=== PATIENT | female | born 2000 | race Caucasian/White ===

== ENCOUNTER 2021-12-10 17:00 | Outpatient (CLI) ==
[~2021-12-10] VITALS: Ht 160 cm; Wt 90.9 kg
[2021-12-10 17:19] VITALS: BP 144/94
[2021-12-10] MEDS ORDERED: PRENTAB9 PO (17:29)
[2021-12-10] MEDS ORDERED: ZYRTTAB8 PO (17:29)
[2021-12-10] MEDS ORDERED: BENA25CA4 PO (17:29)
[2021-12-10 17:39] VITALS: BP 130/76
[2021-12-10 17:55] LABS: HEMATOCRIT 32.8 % (36.0-47.0); HEMOGLOBIN 10.4 g/dl (12.0-15.5); MEAN CORPUSCULAR HGB CONC 31.7 g/dl (32.0-36.5); MEAN CORPUSCULAR VOLUME 78.8 fl (80.0-96.0); PLATELET COUNT, AUTOMATED 358 10^3/uL (150-450); RED BLOOD COUNT 4.16 10^6/uL (4.00-5.40)
[2021-12-10 18:15] LABS: ALBUMIN 2.7 GM/DL (3.2-5.2); ALT/SGPT 17 U/L (12-78); BILIRUBIN,TOTAL 0.6 MG/DL (0.2-1.0); BLOOD UREA NITROGEN 9 MG/DL (7-18); CALCIUM LEVEL 8.8 MG/DL (8.5-10.1); CARBON DIOXIDE LEVEL 23 MEQ/L (21-32); CHLORIDE LEVEL 107 MEQ/L (98-107); CREATININE FOR GFR 0.54 MG/DL (0.55-1.30); GLUCOSE, FASTING 91 MG/DL (70-100); POTASSIUM SERUM 4.1 MEQ/L (3.5-5.1); SODIUM LEVEL 137 MEQ/L (136-145); TOTAL PROTEIN 6.9 GM/DL (6.4-8.2)
[2021-12-10 19:26] VITALS: BP 145/84
== END 2021-12-10 20:00 | disposition home or self-care (01) ==
LOC: M LDO 17:00
PROVIDERS: ATTEND Obstetrics & Gynecology
DX: O99.713 Diseases of the skin and subcutaneous tissue complicating pregnancy, third trimester (principal); L29.9 Pruritus, unspecified; Z3A.37 37 weeks gestation of pregnancy
CPT/HCPCS: 36415; 59025; 80053; 82239; 85027; G0463

== ENCOUNTER 2021-12-23 23:43 | Outpatient (CLI) | payer OTHER ==
[~2021-12-23] VITALS: Ht 160 cm; Wt 92.9 kg
[~2021-12-23 23:43] MED LIST: BENA25CA4 PO; PRENTAB9 PO; ZYRTTAB8 PO
[2021-12-24] MEDS ORDERED: PEPC10TA6 PO (00:07)
[2021-12-24] MEDS ORDERED: HOME MED LIST COMPLETE! XX SCH (00:10)
[2021-12-24 00:11] VITALS: BP 135/79
== END 2021-12-24 00:34 | disposition home or self-care (01) ==
LOC: M LDO 23:43
PROVIDERS: ATTEND Obstetrics & Gynecology
DX: O26.893 Other specified pregnancy related conditions, third trimester (principal); R03.0 Elevated blood-pressure reading, without diagnosis of hypertension; Z3A.39 39 weeks gestation of pregnancy
CPT/HCPCS: 59025; 76815; G0463

== ENCOUNTER 2021-12-24 15:24 | Inpatient (IN) | payer OTHER ==
[2021-12-24] VITALS (16 sets, daily range): BP systolic 126–177; BP diastolic 67–117
[~2021-12-24] VITALS: Ht 160 cm; Wt 92.4 kg
[~2021-12-24 15:24] MED LIST changes: +PEPC10TA6 PO
[2021-12-24] MEDS ORDERED: HOME MED LIST COMPLETE! XX SCH (15:40)
[2021-12-24] MEDS ORDERED: LIDOCAINE 1% MDV 20ML VIAL INFIL PRN (16:40)
[2021-12-24] MEDS ORDERED: TRANEXAMIC ACID INJection 1,000 MG in NS 100 ML IV PRN (16:40)
[2021-12-24] MEDS ORDERED: OXYTOCIN DRIP 30 UNITS in IV 1 EA IV PRN (16:40)
[2021-12-24 16:41] LABS: HEMATOCRIT 32.7 % (36.0-47.0); HEMOGLOBIN 10.7 g/dl (12.0-15.5); MEAN CORPUSCULAR HEMOGLOBIN 25.3 pg (27.0-33.0); MEAN CORPUSCULAR HGB CONC 32.7 g/dl (32.0-36.5); MEAN CORPUSCULAR VOLUME 77.3 fl (80.0-96.0); PLATELET COUNT, AUTOMATED 380 10^3/uL (150-450); RED BLOOD COUNT 4.23 10^6/uL (4.00-5.40); WHITE BLOOD COUNT 10.4 10^3/uL (4.0-10.0)
[2021-12-24 16:59] LABS: ALT/SGPT 14 U/L (12-78); BILIRUBIN,TOTAL 0.5 MG/DL (0.2-1.0); CREATININE FOR GFR 0.46 MG/DL (0.55-1.30); LDH LACTATE DEHYDROGENASE 191 U/L (84-246); URIC ACID 4.9 MG/DL (2.6-6.0)
[2021-12-24 17:50] LABS: CREATININE,RANDOM URINE 85.2 MG/DL; TOTAL PROTEIN,RANDOM URINE 25.4 MG/DL (0.0-12.0)
[2021-12-24] MEDS ORDERED: miSOPROStol 50MCG 1/2 TABLET PO ONE (19:20)
[2021-12-25] VITALS (23 sets, daily range): BP systolic 108–177; BP diastolic 58–113
[2021-12-25] MEDS: miSOPROStol 50MCG 1/2 TABLET PO SCH ×2 (01:49→06:22)
[2021-12-25] MEDS ORDERED: miSOPROStol 25MCG 1/4 TABLET PO SCH (10:40)
[2021-12-25] MEDS ORDERED: OXYTOCIN DRIP 30 UNITS in IV 1 EA IV SCH (17:05)
[2021-12-25 19:23] LABS: HEMATOCRIT 34.5 % (36.0-47.0); HEMOGLOBIN 11.2 g/dl (12.0-15.5); MEAN CORPUSCULAR HEMOGLOBIN 25.2 pg (27.0-33.0); MEAN CORPUSCULAR HGB CONC 32.5 g/dl (32.0-36.5); MEAN CORPUSCULAR VOLUME 77.5 fl (80.0-96.0); PLATELET COUNT, AUTOMATED 370 10^3/uL (150-450); RED BLOOD COUNT 4.45 10^6/uL (4.00-5.40); WHITE BLOOD COUNT 11.9 10^3/uL (4.0-10.0)
[2021-12-25] MEDS ORDERED: FENTANYL 2MCG/ML ROPIVACAINE 0.2% IN 0.9% NACL 100ML IVBAG As Ordered ONE (23:36)
[2021-12-25] MEDS ORDERED: LACTATED RINGER'S 1000 ML IV PRN (23:37)
[2021-12-25] MEDS ORDERED: NALOXONE INJ 0.4MG/1ML VIAL (J2310 PER 1MG) IV PRN (23:37)
[2021-12-25] MEDS ORDERED: EPIDURAL/PCA KEYS XX PRN (23:37)
[2021-12-25] MEDS ORDERED: ONDANSETRON 4MG/2ML VIAL IV PRN (23:37)
[2021-12-25] MEDS ORDERED: EPIDURAL COMMENT XX SCH (23:37)
[2021-12-25] MEDS ORDERED: REFRIGERATOR IV KEYS XX PRN (23:37)
[2021-12-25] MEDS ORDERED: diphenhydrAMINE 50MG/ML VIAL (J1200) IV PRN (23:37)
[2021-12-25] MEDS ORDERED: ePHEDrine SULFATE 25 MG/5 ML(5MG/ML) SYRINGE IV PRN (23:37)
[2021-12-25] MEDS: LR 1,000 ML IV SCH (23:44)
[2021-12-26] VITALS (54 sets, daily range): BP systolic 115–172; BP diastolic 55–98
[2021-12-26] MEDS: FENTANYL/ROPIVACAINE/NACL BAG 100 ML EPIDURAL SCH ×2 (00:27→08:10)
[2021-12-26] MEDS: LR 1,000 ML IV SCH ×3 (04:15→10:47)
[2021-12-26] MEDS ORDERED: diphenhydrAMINE 50MG/ML VIAL (J1200) IV ONE (09:45)
[2021-12-26] MEDS ORDERED: ONDANSETRON 4MG/2ML VIAL IV PRN (13:25)
[2021-12-26] MEDS ORDERED: DIBUCAINE 1% OINTMENT 30GM TOP PRN (13:25)
[2021-12-26] MEDS ORDERED: IBUPROFEN 600MG TAB PO PRN (13:25)
[2021-12-26] MEDS ORDERED: OXYTOCIN DRIP 30 UNITS in IV 1 EA IV SCH (13:25)
[2021-12-26] MEDS ORDERED: ACETAMINOPHEN TAB 650MG DOSE (2X325MG) PO PRN (13:25)
[2021-12-26] MEDS ORDERED: MEASLES,MUMPS,RUBELLA VACCINE INJ (MMR-II) (90707) SC SCH (13:25)
[2021-12-26] MEDS ORDERED: RHOGAM 300 MCG (1500 IU) INJ (J2790) IM SCH (13:25)
[2021-12-26] MEDS: ACETAMINOPHEN 500 MG TAB PO PRN (14:14)
[2021-12-26] MEDS: IBUPROFEN 800 MG TAB PO PRN (14:15)
[2021-12-27] MEDS: DOCUSATE SODIUM 100MG CAPSULE PO PRN ×2 (01:18→21:18)
[2021-12-27] MEDS: ACETAMINOPHEN 500 MG TAB PO PRN ×2 (01:18→10:46)
[2021-12-27] MEDS: IBUPROFEN 800 MG TAB PO PRN ×2 (03:55→16:40)
[2021-12-27 06:13] VITALS: BP 135/73
[2021-12-27] MEDS: PRENATAL VITAMINS CHEWABLE TABLET PO SCH (08:11)
[2021-12-27 18:00] VITALS: BP 121/67
[2021-12-28] VITALS (41 sets, daily range): BP systolic 108–170; BP diastolic 51–98
[2021-12-28] MEDS ORDERED: ACET1TAB55 PO (07:41)
[2021-12-28] MEDS ORDERED: IBUP-1022 PO (07:41)
[2021-12-28] MEDS ORDERED: COLA100C5 PO (07:41)
[2021-12-28] MEDS: PRENATAL VITAMINS CHEWABLE TABLET PO SCH (09:24)
[2021-12-28] MEDS: ACETAMINOPHEN 500 MG TAB PO PRN ×2 (09:26→17:25)
[2021-12-28] MEDS: IBUPROFEN 800 MG TAB PO PRN ×2 (10:37→20:48)
[2021-12-28] MEDS ORDERED: LABETALOL 100MG/20ML VIAL IV ONE (10:50)
[2021-12-28] MEDS ORDERED: CALCIUM GLUCONATE 1,000 MG in D5W MINI-BAG PLUS 100 ML IV PRN (11:40)
[2021-12-28] MEDS ORDERED: LR 1,000 ML IV SCH (12:00)
[2021-12-28] MEDS ORDERED: MAG Sulf (L&D) 4 GM/100 ML 4 GM in IV 1 EA IV ONE (12:00)
[2021-12-28 12:30] LABS: HEMATOCRIT 21.3 % (36.0-47.0); MEAN CORPUSCULAR HEMOGLOBIN 25.5 pg (27.0-33.0); MEAN CORPUSCULAR HGB CONC 31.9 g/dl (32.0-36.5); MEAN CORPUSCULAR VOLUME 79.8 fl (80.0-96.0); PLATELET COUNT, AUTOMATED 316 10^3/uL (150-450); RED BLOOD COUNT 2.67 10^6/uL (4.00-5.40); WHITE BLOOD COUNT 15.9 10^3/uL (4.0-10.0)
[2021-12-28 12:37] LABS: HEMOGLOBIN 6.8 g/dl (12.0-15.5)
[2021-12-28] MEDS: MAG Sulf (OBGYN) 20GM/500ML 20,000 MG in IV 1 EA IV SCH ×2 (12:39→22:20)
[2021-12-28 13:02] LABS: ALBUMIN 2.3 GM/DL (3.2-5.2); ALT/SGPT 12 U/L (12-78); ALT/SGPT 16 U/L (12-78); BILIRUBIN,TOTAL 0.2 MG/DL (0.2-1.0); BILIRUBIN,TOTAL 0.3 MG/DL (0.2-1.0); BLOOD UREA NITROGEN 8 MG/DL (7-18); CALCIUM LEVEL 8.8 MG/DL (8.5-10.1); CARBON DIOXIDE LEVEL 25 MEQ/L (21-32); CHLORIDE LEVEL 108 MEQ/L (98-107); CREATININE FOR GFR 0.41 MG/DL (0.55-1.30); CREATININE FOR GFR 0.45 MG/DL (0.55-1.30); GLUCOSE, FASTING 93 MG/DL (70-100); LDH LACTATE DEHYDROGENASE 251 U/L (84-246); SODIUM LEVEL 140 MEQ/L (136-145); TOTAL PROTEIN 5.8 GM/DL (6.4-8.2); URIC ACID 5.2 MG/DL (2.6-6.0)
[2021-12-28] MEDS ORDERED: diphenhydrAMINE 25MG CAP PO STA (14:23)
[2021-12-29] VITALS (18 sets, daily range): BP systolic 117–179; BP diastolic 60–109
[2021-12-29] MEDS ORDERED: NIFEdipine 30 MG XL TAB PO PRN (00:40)
[2021-12-29 06:30] LABS: HEMATOCRIT 27.3 % (36.0-47.0); MEAN CORPUSCULAR HEMOGLOBIN 26.5 pg (27.0-33.0); MEAN CORPUSCULAR VOLUME 80.3 fl (80.0-96.0); PLATELET COUNT, AUTOMATED 347 10^3/uL (150-450); WHITE BLOOD COUNT 13.2 10^3/uL (4.0-10.0)
[2021-12-29] MEDS ORDERED: FERR325T3 PO (07:10)
[2021-12-29] MEDS: MAG Sulf (OBGYN) 20GM/500ML 20,000 MG in IV 1 EA IV SCH (08:20)
[2021-12-29] MEDS: PRENATAL VITAMINS CHEWABLE TABLET PO SCH ×2 (09:00→13:03)
[2021-12-29] MEDS: NIFEdipine 30 MG XL TAB PO SCH (13:02)
[2021-12-29] MEDS: LABETALOL 200 MG TAB PO SCH ×2 (13:03→20:48)
[2021-12-29] MEDS: IBUPROFEN 800 MG TAB PO PRN (18:32)
[2021-12-29] MEDS ORDERED: SIMETHICONE 80MG CHEW TAB PO PRN (20:10)
[2021-12-30 03:00] VITALS: BP 132/72
[2021-12-30] MEDS: PRENATAL VITAMINS CHEWABLE TABLET PO SCH (08:25)
[2021-12-30 08:26] VITALS: BP 132/72
[2021-12-30] MEDS: LABETALOL 200 MG TAB PO SCH (08:26)
[2021-12-30] MEDS: NIFEdipine 30 MG XL TAB PO SCH (08:27)
[2021-12-30 08:55] VITALS: BP 132/72
== END 2021-12-30 09:10 | disposition home or self-care (01) | DRG 807 ==
LOC: M LDO 15:24 → M LDI 17:53 → M OBS 12-26 16:00 → M LDI 12-28 12:20 → M OBS 12-29 21:17
PROVIDERS: ADMIT Obstetrics & Gynecology; ATTEND Obstetrics & Gynecology
PROC: 3E033VJ Introduction of Other Hormone into Peripheral Vein, Percutaneous Approach (ICD-10-PCS; 2021-12-24)
PROC: 10E0XZZ Delivery of Products of Conception, External Approach (ICD-10-PCS; principal; 2021-12-26)
PROC: 0KQM0ZZ Repair Perineum Muscle, Open Approach (ICD-10-PCS; 2021-12-26)
DX: O13.4 Gestational [pregnancy-induced] hypertension without significant proteinuria, complicating childbirth (principal); Z37.0 Single live birth; Z3A.39 39 weeks gestation of pregnancy; O32.6XX0 Maternal care for compound presentation, not applicable or unspecified; O77.0 Labor and delivery complicated by meconium in amniotic fluid; O70.1 Second degree perineal laceration during delivery